=== PATIENT | male | born 1995 | race Caucasian/White ===

== ENCOUNTER → 2018-12-12 | Outpatient (CLI) | payer BC, OTHER ==
[~2018-12-12] MED LIST: CEPH500 PO; INDO50 PO
== END | disposition home or self-care (01) ==
LOC: LAB SHORT 16:35 → LAB EV 16:35
DX: L02.91 Cutaneous abscess, unspecified (principal)
CPT/HCPCS: 87070; 87075; 87076; 87185; 87205